=== PATIENT | female | born 1975 | race Hispanic/Latino ===

== ENCOUNTER 2021-06-23 02:18 | Emergency (ER) | payer SELFPAY ==
[2021-06-23] MEDS ORDERED: MORPHINE 4 MG/1 ML INJ IV ONE (02:45)
[2021-06-23] MEDS ORDERED: ONDANSETRON 4 MG/2 ML INJ IV ONE (02:45)
[2021-06-23] MEDS ORDERED: SODIUM CHLORIDE 0.9% 1000 ML 1,000 ML IV ONE (02:47)
--- NOTE | 2021-06-23 03:04 | Emergency Department Report ---
ED Abdominal Pain HPI - General Chief Complaint: Abdominal Pain Stated Complaint: LOWER LEFT FLANK PAIN Time Seen by Provider: 06/23/21 02:46 Source: patient, EMS Mode of arrival: Stretcher Limitations: No Limitations - History of Present Illness Initial Comments: 45-year-old female, history of kidney stones, presents to ED with left flank pain. Patient believes pain is due to a kidney stone. She reports onset of pain at 6 PM this evening with associated nausea and vomiting. She reports some hematuria last week, states she has not noticed any today. Patient lives in [place] and was in route to [place] to help her daughter move. Patient had a layover in [place] and decided to come to the ER to be seen. Patient reports previous lithotripsy procedures. MD Complaint: abdominal pain -: This evening Location: L flank Radiation: LLQ Severity: severe Severity scale (0 -10): 10 Quality: sharp Consistency: constant Improves With: nothing Worsens With: nothing Associated Symptoms: nausea, vomiting. denies: fever - Related Data Previous Rx's Medication Instructions Recorded Last Taken Type HYDROcodone/APAP 5-325 [Hollister 1 each PO Q6HR PRN #10 tablet 06/23/21 Unknown Rx 5/325] Naproxen [Naprosyn] 500 mg PO BID #20 tablet 06/23/21 Unknown Rx Ondansetron [Zofran Odt] 4 mg PO Q8HR PRN #20 tab.rapdis 06/23/21 Unknown Rx Tamsulosin [Flomax] 0.4 mg PO QDAY #7 cap 06/23/21 Unknown Rx Allergies Allergy/AdvReac Type Severity Reaction Status Date / Time No Known Allergies Allergy Unverified 06/23/21 02:45 ED Review of Systems ROS: Stated complaint: LOWER LEFT FLANK PAIN Other details as noted in HPI Constitutional: denies: chills, fever Gastrointestinal: abdominal pain, nausea, vomiting Genitourinary: hematuria ED Past Medical Hx - Social History Smoking Status: Former Smoker - Medications Home Medications: Home Medications Medication Instructions Recorded Confirmed Last Taken Type HYDROcodone/APAP 5-325 [Hollister 1 each PO Q6HR PRN #10 tablet 06/23/21 Unknown Rx 5/325] Naproxen [Naprosyn] 500 mg PO BID #20 tablet 06/23/21 Unknown Rx Ondansetron [Zofran Odt] 4 mg PO Q8HR PRN #20 tab.rapdis 06/23/21 Unknown Rx Tamsulosin [Flomax] 0.4 mg PO QDAY #7 cap 06/23/21 Unknown Rx ED Physical Exam - General Limitations: No Limitations General appearance: alert, other (In obvious pain) - Head Head exam: Present: atraumatic, normocephalic - Eye Eye exam: Present: normal appearance, EOMI - ENT ENT exam: Present: mucous membranes moist - Neck Neck exam: Present: normal inspection - Respiratory Respiratory exam: Present: normal lung sounds bilaterally. Absent: respiratory distress - Cardiovascular Cardiovascular Exam: Present: regular rate, normal rhythm - GI/Abdominal GI/Abdominal exam: Present: soft, tenderness (LLQ tenderness). Absent: distended - Extremities Exam Extremities exam: Present: normal inspection - Back Exam Back exam: Present: CVA tenderness (L) - Neurological Exam Neurological exam: Present: alert, oriented X3 - Psychiatric Psychiatric exam: Present: normal affect, normal mood - Skin Skin exam: Present: warm, dry, intact, normal color ED Course Vital Signs 06/23/21 06/23/21 06/23/21 02:27 02:35 02:45 Temperature 97.7 F 97.7 F Pulse Rate 88 80 Respiratory 16 22 Rate Blood Pressure Blood Pressure 144/80 133/65 [Left] O2 Sat by Pulse 100 100 100 Oximetry 06/23/21 06/23/21 06/23/21 02:50 03:00 03:30 Temperature Pulse Rate 78 72 Respiratory 20 16 Rate Blood Pressure 133/65 133/65 135/94 Blood Pressure [Left] O2 Sat by Pulse 100 100 Oximetry 06/23/21 06/23/21 06/23/21 04:00 04:30 05:00 Temperature Pulse Rate 74 77 84 Respiratory 14 12 13 Rate Blood Pressure 124/61 119/59 122/58 Blood Pressure [Left] O2 Sat by Pulse 99 99 97 Oximetry 06/23/21 05:30 Temperature Pulse Rate 75 Respiratory 14 Rate Blood Pressure 122/58 Blood Pressure [Left] O2 Sat by Pulse 98 Oximetry ED Medical Decision Making - Lab Data Result diagrams: 06/23/21 02:56 06/23/21 02:56 - Radiology Data Radiology results: report reviewed, image reviewed - Medical Decision Making 45-year-old female presents to ED with left flank pain. History of kidney stones in the past. Patient is afebrile, no elevated WBCs, no UTI. Vital signs are stable. Patient has been medicated and feels much better currently. Patient is comfortable with discharge at this time. Kidney function is normal. Patient informed of large size of kidney stone, and need to follow-up with urologist. Patient is from out of town. States she will be returning home to follow-up with her physician. - Differential Diagnosis Kidney stone, renal failure, UTI Critical care attestation.: If time is entered above; I have spent that time in minutes in the direct care of this critically ill patient, excluding procedure time. ED Disposition Clinical Impression: Kidney stone Disposition: HOME / SELF CARE / HOMELESS Is pt being admited?: No Condition: Stable Instructions: Kidney Stones, Inac-[id number], Abdominal Pain (ED) Prescriptions: Tamsulosin [Flomax] 0.4 mg PO QDAY #7 cap Naproxen [Naprosyn] 500 mg PO BID #20 tablet HYDROcodone/APAP 5-325 [Hollister 5/325] 1 each PO Q6HR PRN #10 tablet PRN Reason: Pain Ondansetron [Zofran Odt] 4 mg PO Q8HR PRN #20 tab.rapdis PRN Reason: Vomiting Referrals: WILMER HOLT MD [Staff Physician] - 3-5 Days Time of Disposition: 05:58
[2021-06-23] MEDS ORDERED: HYDROmorphone 1 MG/1 ML INJ IV ONE (03:41)
[2021-06-23 03:49] LABS: Hematocrit 35.3 % (30.3-42.9); Hemoglobin 12.2 gm/dl (10.1-14.3); Mean Corpuscular HGB Conc 34 % (30-34); Mean Corpuscular Volume 98 fl (79-97); Platelet Count 218 K/mm3 (140-440); Red Blood Count 3.61 M/mm3 (3.65-5.03); Red Cell Distribution Width 13.3 % (13.2-15.2)
[2021-06-23 04:47] LABS: RBC Morphology Normal; Total Cells Counted 100
[2021-06-23 05:15] LABS: Bilirubin,Urine NEG (Negative); Blood,Urine LG (Negative); Color,Urine Yellow (Yellow); Mucus,Urine FEW /HPF; Protein,Urine <15 mg/dL mg/dL (Negative); Urobilinogen,Urine < 2.0 mg/dL (<2.0)
[2021-06-23 05:19] VITALS: BP 122/58
[2021-06-23 05:29] LABS: Alanine Aminotransferase 18 units/L (7-56); Albumin 4.2 g/dL (3.9-5); Blood Urea Nitrogen 17 mg/dL (7-17); Calcium 8.8 mg/dL (8.4-10.2); Hemolysis Index 6
[2021-06-23 05:31] LABS: BUN/Creatinine Ratio 24
--- NOTE | 2021-06-23 05:42 | Cat Scan Report ---
CT ABDOMEN AND PELVIS WITHOUT CONTRAST INDICATION / CLINICAL INFORMATION: left flank pain. TECHNIQUE: Axial CT images were obtained through the abdomen and pelvis without IV contrast. All CT scans at this location are performed using CT dose reduction for ALARA by means of automated exposure control. COMPARISON: None available. FINDINGS: LOWER CHEST: No significant abnormality. AORTA / ARTERIES: No significant abnormality. IVC / VEINS: No significant abnormality. LYMPH NODES: No significant adenopathy. COLON: Diverticulosis without acute inflammation. There is mild fatty infiltration of the colonic wal l. APPENDIX: No significant abnormality. STOMACH / SMALL BOWEL: No significant abnormality. PERITONEUM: No free fluid. No free air. No fluid collection. LIVER: No significant abnormality. GALLBLADDER: No significant abnormality. BILE DUCTS: No significant abnormality. PANCREAS: No significant abnormality. SPLEEN: No significant abnormality. ADRENALS: No significant abnormality. RIGHT KIDNEY / URETER: Numerous renal stones measuring up to 0.5 cm. No hydronephrosis. LEFT KIDNEY / URETER: Within the distal left ureter there is a 0.8 cm stone. This stone causes modera te hydroureter and moderate hydronephrosis. There is also substantial perinephric fat stranding. URINARY BLADDER: No significant abnormality. REPRODUCTIVE ORGANS: No significant abnormality. SKELETAL SYSTEM: No significant abnormality. ADDITIONAL FINDINGS: None. IMPRESSION: 1. There is a 0.8 cm stone within the left distal ureter which causes moderate obstructive nephropath y as demonstrated by moderate hydroureter, moderate hydronephrosis and substantial perinephric fat st randing. 2. Multiple nonobstructing right renal stones measuring up to 0.5 cm. 3. Diverticulosis without diverticulitis. 4. There is fatty infiltration of the colonic wall. This is may represent inflammatory bowel disease, correlate clinically. Signer Name: Dustin Gillespie DO Signed: 06/23/2021 5:38 AM Workstation Name: [id number]
== END 2021-06-23 06:29 | disposition home or self-care (01) ==
LOC: ED 02:18
DX: N20.0 Calculus of kidney (principal); Z79.899 Other long term (current) drug therapy
CPT/HCPCS: 36415; 74176; 80053; 81001; 84703; 85007; 85025; 87086; 96361; 96374; 96375; 99284; J1170; J2270; J2405; J7030